=== PATIENT | female | born 2000 | race Caucasian/White ===

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

== ENCOUNTER → 2022-02-27 | Outpatient (CLI) | payer SELFPAY ==
[2022-02-27 11:22] LABS: Estradiol 29.2 pg/mL
== END | disposition home or self-care (01) ==
LOC: WOBLAB 10:02
PROVIDERS: PCP Physician Assistant; Visit Provider Student in an Organized Health Care Education/Training Program
DX: N91.1 Secondary amenorrhea (principal)
CPT/HCPCS: 36415; 82670

== ENCOUNTER → 2022-07-13 | Outpatient (CLI) | payer SELFPAY ==
[2022-07-13 12:20] LABS: Bacteria 0 SEEN /hpf (None Seen); Mucous, Urine 0 SEEN /hpf (<or=2+); Red Blood Cells-Urine 0 SEEN /hpf (0-5); Squamous Epithelial Cells - UA 0 SEEN /hpf (5-10); White Blood Cells 0 SEEN /hpf (0-5)
[2022-07-13 13:41] LABS: Color, Urine Yellow (Yellow); Glucose, Dipstick Normal (Normal); Ketone-Dipstick Negative (Negative); Leukocyte Esterase-Dipstick Negative /ul (Negative); Nitrite-Dipstick Negative (Negative); Occult Blood-Urine Negative /ul (Negative); Protein-Dipstick Negative (Negative); Urine Bilirubin Dipstick Negative (Negative); Urine Clarity Clear (Clear); Urine Urobilinogen Normal (Normal)
[2022-07-13 13:58] LABS: Internal QC Validated? YES +Cl - CLEAR BKGD; Pregnancy, Urine Negative Negative
[2022-07-13 14:23] LABS: ALB/GLOB Ratio 1.1 RATIO (0.9-2.4); AST(SGOT) 24 U/L (15-37); Alanine Aminotransfer ALT/SGPT 55 U/L (13-56); Albumin, Serum 4.1 g/dL (3.2-5.0); Alkaline Phosphatase 75 U/L (45-117); Anion Gap 6 (5-15); BUN 16 mg/dL (7-18); BUN/Creat Ratio 20.2 RATIO (10-20); Calcium,Total 9.5 mg/dL (8.5-10.1); Chloride 107 mmol/L (98-107); Creatinine, Serum 0.79 mg/dL (0.55-1.02); EST Glomerular Filtration Rate 97 mL/min (>60); Est Glom Filt Rate - Afr Amer 118 mL/min (>60); Estradiol 33.8 pg/mL; Follicle Stimulating Hormone 10.4 mIU/mL; Globulin 3.6 g/dL (2.2-4.2); Glucose 78 mg/dL (74-106); Luteinizing Hormone 4.8 mIU/mL; Potassium 3.2 mmol/L (3.5-5.1); Protein, Total 7.7 g/dL (6.4-8.2); Sodium Level 141 mmol/L (136-145); T4 Free Direct 0.76 ng/dL (0.76-1.46); Thyroid Stim Hormone (TSH) 1.52 uIU/mL (0.358-3.74)
[2022-07-18 17:31] LABS: 17-Hydroxyprogesterone 21 ng/dL (.)
[2022-07-20 12:08] LABS: Testosterone, % Free 2.02 % (0.50-2.80); Testosterone, Total 10 ng/dL (13-71)
== END | disposition home or self-care (01) ==
PROVIDERS: PCP Physician Assistant; Referring Provider Internal Medicine Endocrinology, Diabetes & Metabolism; Visit Provider Internal Medicine Endocrinology, Diabetes & Metabolism
DX: R30.0 Dysuria (principal); N91.1 Secondary amenorrhea
CPT/HCPCS: 36415; 80053; 81001; 81025; 82533; 82627; 82670; 83001; 83002; 83498; 84146; 84402; 84403; 84439; 84443; 82626

== ENCOUNTER → 2022-09-20 | Outpatient (CLI) | payer SELFPAY ==
[2022-09-20 15:17] LABS: Estradiol 30.5 pg/mL; Follicle Stimulating Hormone 8.7 mIU/mL; Luteinizing Hormone 4.2 mIU/mL; Prolactin 4.3 ng/mL
[2022-10-02 10:28] LABS: 17-Hydroxyprogesterone 16 ng/dL (.)
== END | disposition home or self-care (01) ==
LOC: WOBLAB 13:48
PROVIDERS: PCP Physician Assistant; Visit Provider Student in an Organized Health Care Education/Training Program
DX: N91.1 Secondary amenorrhea (principal)
CPT/HCPCS: 36415; 82670; 83001; 83002; 83498; 84146